=== PATIENT | male | born 1995 | race Caucasian/White ===

== ENCOUNTER 2019-04-29 12:01 | Emergency (ER) | payer OTHER ==
[~2019-04-29] VITALS: Ht 180.3 cm; Wt 83.2 kg
[2019-04-29] MEDS ORDERED: MAPA500C PO (12:07)
[2019-04-29] MEDS ORDERED: ACETAMINOPHEN 325 MG TAB PO ONE (13:15)
[2019-04-29] MEDS ORDERED: KETOROLAC 60 MG/2 ML VIAL (J1885) IM ONE (13:15)
[2019-04-29] MEDS ORDERED: PRED10TA2 PO (13:19)
[2019-04-29] MEDS ORDERED: PENI500T PO (13:19)
[2019-04-29 13:38] VITALS: BP 124/75
[2019-04-30] MEDS ORDERED: IBUP-1022 PO (12:33)
[2019-04-30] MEDS ORDERED: KEFL500C17 PO (12:33)
[2019-04-30] MEDS ORDERED: ONDA4TAB6 PO (12:38)
== END 2019-04-29 13:40 | disposition home or self-care (01) ==
LOC: M ED 12:01
DX: J02.0 Streptococcal pharyngitis (principal); F17.200 Nicotine dependence, unspecified, uncomplicated
CPT/HCPCS: 87880; 96372; 99284; J1885

== ENCOUNTER 2019-04-30 09:13 | Emergency (ER) | payer OTHER ==
[~2019-04-30] VITALS: Ht 180.3 cm; Wt 81.3 kg
[~2019-04-30 09:13] MED LIST: MAPA500C PO; PENI500T PO; PRED10TA2 PO
[2019-04-30] MEDS ORDERED: ONDANSETRON 4MG/2ML VIAL (J2405) IV ONE ×2 (10:00→10:30)
[2019-04-30 10:21] LABS: BASO % 0.1 % (0.0-1.0); HEMATOCRIT 42.8 % (42.0-52.0); HEMOGLOBIN 14.7 g/dl (13.5-17.5); LYMPH # 1.1 10^3/uL (1.5-5.0); LYMPH % 5.4 % (24.0-44.0); MEAN CORPUSCULAR HEMOGLOBIN 30.1 pg (27.0-33.0); MEAN CORPUSCULAR HGB CONC 34.3 g/dl (32.0-36.5); MEAN CORPUSCULAR VOLUME 87.5 fl (80.0-96.0); MONO # 1.3 10^3/uL (0.0-0.8); MONO % 6.1 % (0.0-5.0); NEUTROPHILS # 18.4 10^3/uL (1.5-8.5); NEUTROPHILS % 87.7 % (36.0-66.0); PLATELET COUNT, AUTOMATED 222 10^3/uL (150-450); RED BLOOD COUNT 4.89 10^6/uL (4.30-6.10)
[2019-04-30] MEDS ORDERED: dexameTHASONE 20 MG/5 ML VIAL (J1100) IV ONE (10:30)
[2019-04-30] MEDS ORDERED: ceFAZolin SOD 1 GM in D5W MINI-BAG PLUS 50 ML IV ONE (10:30)
[2019-04-30 10:48] LABS: BLOOD UREA NITROGEN 20 MG/DL (7-18); CALCIUM LEVEL 9.6 MG/DL (8.5-10.1); CARBON DIOXIDE LEVEL 26 MEQ/L (21-32); CHLORIDE LEVEL 100 MEQ/L (98-107); CREATININE FOR GFR 1.01 MG/DL (0.70-1.30); GLOMERULAR FILTRATION RATE > 60.0 (>60); GLUCOSE, FASTING 89 MG/DL (70-100); POTASSIUM SERUM 4.2 MEQ/L (3.5-5.1); SODIUM LEVEL 138 MEQ/L (136-145)
[2019-04-30] MEDS ORDERED: KETOROLAC 30 MG/ML VIAL (J1885) IV ONE (11:00)
[2019-04-30] MEDS ORDERED: KEFL500C17 PO (12:33)
[2019-04-30] MEDS ORDERED: IBUP-1022 PO (12:33)
[2019-04-30] MEDS ORDERED: ONDA4TAB6 PO (12:38)
[2019-04-30 12:45] VITALS: BP 138/77
== END 2019-04-30 12:53 | disposition home or self-care (01) ==
LOC: M ED 09:13
DX: J03.00 Acute streptococcal tonsillitis, unspecified (principal); R11.10 Vomiting, unspecified; F17.200 Nicotine dependence, unspecified, uncomplicated; Z79.52 Long term (current) use of systemic steroids; Z79.2 Long term (current) use of antibiotics
CPT/HCPCS: 80048; 85025; 96365; 96375; 99284; J0690; J1100; J1885; J2405

== ENCOUNTER 2020-10-04 11:49 | Emergency (ER) | payer OTHER ==
[~2020-10-04] VITALS: Ht 180.3 cm; Wt 98.0 kg
[~2020-10-04 11:49] MED LIST changes: +IBUP-1022 PO; +KEFL500C17 PO; +ONDA4TAB6 PO
[2020-10-04 12:32] LABS: BASO % 0.4 % (0.0-1.0); EOS # 0.1 10^3/uL (0.0-0.5); EOS % 0.7 % (0.0-3.0); LYMPH # 2.2 10^3/uL (1.5-5.0); LYMPH % 26.7 % (24.0-44.0); MEAN CORPUSCULAR HEMOGLOBIN 30.1 pg (27.0-33.0); MEAN CORPUSCULAR HGB CONC 34.1 g/dl (32.0-36.5); MEAN CORPUSCULAR VOLUME 88.2 fl (80.0-96.0); MONO # 0.7 10^3/uL (0.0-0.8); MONO % 8.2 % (2.0-8.0); NEUTROPHILS # 5.1 10^3/uL (1.5-8.5); NEUTROPHILS % 63.8 % (36.0-66.0); PLATELET COUNT, AUTOMATED 225 10^3/uL (150-450); RED BLOOD COUNT 4.65 10^6/uL (4.30-6.10); WHITE BLOOD COUNT 8.1 10^3/uL (4.0-10.0)
[2020-10-04 13:01] LABS: ALBUMIN 3.8 GM/DL (3.2-5.2); ALT/SGPT 19 U/L (12-78); BILIRUBIN,TOTAL 0.8 MG/DL (0.2-1.0); BLOOD UREA NITROGEN 15 MG/DL (7-18); CALCIUM LEVEL 8.9 MG/DL (8.5-10.1); CARBON DIOXIDE LEVEL 27 MEQ/L (21-32); CHLORIDE LEVEL 107 MEQ/L (98-107); CREATININE FOR GFR 1.21 MG/DL (0.70-1.30); GLOMERULAR FILTRATION RATE > 60.0 (>60); GLUCOSE, FASTING 86 MG/DL (70-100); LIPASE 55 U/L (73-393); POTASSIUM SERUM 3.9 MEQ/L (3.5-5.1); SODIUM LEVEL 140 MEQ/L (136-145); TOTAL PROTEIN 7.5 GM/DL (6.4-8.2)
[2020-10-04] MEDS ORDERED: NS 1,000 ML IV ONE (14:25)
[2020-10-04] MEDS ORDERED: ISOVUE-370 76% 100ML VIAL As Ordered ONE (14:31)
[2020-10-04] MEDS ORDERED: ONDANSETRON 4MG/2ML VIAL IV ONE (14:35)
--- NOTE | 2020-10-04 15:09 | REP ---
INDICATION: LLQ pain COMPARISON: None. TECHNIQUE: CT Scan of the abdomen and pelvis was performed with intravenous administration of 100 cc of Isovue 370, without oral contrast. Sagittal and coronal reconstruction images are performed. FINDINGS: Lung bases: Unremarkable. Liver: There is mild hepatomegaly. The length of the liver is approximately 19 cm. Gallbladder: Unremarkable. Spleen: Normal. Adrenals: Normal. Pancreas: Normal. Kidneys: There are areas of ill-defined hypodensity scattered throughout the cortex of both kidneys, suggesting bilateral pyelonephritis. There is no hydronephrosis or focal mass. Small and large bowel: Unremarkable. Free fluid: There is mild free fluid in the pelvis. Abdominal aorta: No aneurysm or dissection. Adenopathy: None. Appendix: Not inflamed. Osseous structures: Unremarkable. Pelvis: No mass. IMPRESSION: Findings in the kidneys which suggest bilateral pyelonephritis. Mild free fluid in the pelvis. Mild hepatomegaly. <Electronically signed by Jr Byrd > 10/04/20 2391
[2020-10-04] MEDS ORDERED: ZOFR4TAB16 PO (16:31)
[2020-10-04] MEDS ORDERED: CEFP200T PO (16:31)
[2020-10-04] MEDS ORDERED: ACETAMINOPHEN 325 MG TAB PO ONE (17:15)
[2020-10-04] MEDS ORDERED: ACET325C5 PO (18:20)
[2020-10-04 18:33] VITALS: BP 142/99
== END 2020-10-04 18:46 | disposition home or self-care (01) ==
LOC: M ED 11:49
DX: N10 Acute pyelonephritis (principal); R16.0 Hepatomegaly, not elsewhere classified; F17.200 Nicotine dependence, unspecified, uncomplicated
CPT/HCPCS: 74177; 80053; 81001; 83690; 85025; 96361; 96374; 99284; J2405; Q9967

== ENCOUNTER 2021-09-24 14:30 | Emergency (ER) | payer OTHER, SELFPAY ==
[~2021-09-24] VITALS: Ht 180.3 cm; Wt 101.9 kg
[~2021-09-24 14:30] MED LIST changes: +ACET325C5 PO; +CEFP200T PO; +ZOFR4TAB16 PO
[2021-09-24 14:31] VITALS: BP 125/79
[2021-09-24] MEDS ORDERED: DAY QUIL PO (14:58)
== END 2021-09-24 17:14 | disposition left against medical advice (07) ==
LOC: M ED 14:30
DX: Z53.21 Procedure and treatment not carried out due to patient leaving prior to being seen by health care provider (principal)

== ENCOUNTER 2024-10-16 15:36 | Observation (INO) | payer OTHER, SELFPAY ==
[2024-10-16] VITALS (15 sets, daily range): BP systolic 108–133; BP diastolic 58–74; TEMP 98.1–99.2; O2SAT 97–100
[~2024-10-16] VITALS: Ht 180.3 cm; Wt 104.3 kg
[~2024-10-16 15:36] MED LIST changes: +DAY QUIL PO; +ONDA-282 PO; -ONDA4TAB6 PO
[2024-10-16 18:37] LABS: MEAN CORPUSCULAR HEMOGLOBIN 25.4 pg (27.0-33.0); MEAN CORPUSCULAR HGB CONC 31.6 g/dl (32.0-36.5); MEAN CORPUSCULAR VOLUME 80.5 fl (80.0-96.0); PLATELET COUNT, AUTOMATED 406 10^3/uL (150-450); RED BLOOD COUNT 2.36 10^6/uL (4.30-6.10); WHITE BLOOD COUNT 9.6 10^3/uL (4.0-10.0)
[2024-10-16 18:58] LABS: ATYPICAL LYMPH 1 % (0-5); EOSINOPHILS 2 % (0-3); LYMPHOCYTES 60 % (16-44); MONOCYTES 2 % (0-5); NEUTROPHILS 35 % (28-66)
[2024-10-16 19:00] LABS: ANISOCYTOSIS 1+; MICROCYTOSIS 1+; PLATELET ESTIMATE NORMAL (NORMAL)
[2024-10-16 19:07] LABS: BLOOD UREA NITROGEN 16 MG/DL (9-23); CARBON DIOXIDE LEVEL 26 MMOL/L (20-31); CHLORIDE LEVEL 107 MMOL/L (98-107); CREATININE FOR GFR 0.97 MG/DL (0.70-1.30); GLOMERULAR FILTRATION RATE > 90.0 (>60); GLUCOSE, FASTING 91 MG/DL (60-100); POTASSIUM SERUM 3.6 MMOL/L (3.5-5.1); SODIUM LEVEL 142 MMOL/L (136-145)
[2024-10-16] MEDS ORDERED: HOME MED LIST COMPLETE! XX SCH (20:20)
[2024-10-16] MEDS ORDERED: LORazepam 2 MG TAB PO PRN (21:00)
[2024-10-16] MEDS: PANTOPRAZOLE 40MG VIAL IV SCH (22:51)
[2024-10-16] MEDS: THIAMINE 100 MG TAB PO SCH (22:51)
[2024-10-17] VITALS (8 sets, daily range): BP systolic 123–154; BP diastolic 63–95; TEMP 98.1–99.1; O2SAT 99–100
[2024-10-17 01:42] LABS: HEMOGLOBIN 7.2 g/dl (13.5-17.5)
[2024-10-17 07:47] LABS: HEMATOCRIT 22.7 % (42.0-52.0); HEMOGLOBIN 7.5 g/dl (13.5-17.5); MEAN CORPUSCULAR HEMOGLOBIN 26.7 pg (27.0-33.0); MEAN CORPUSCULAR VOLUME 80.8 fl (80.0-96.0); PLATELET COUNT, AUTOMATED 310 10^3/uL (150-450); RED BLOOD COUNT 2.81 10^6/uL (4.30-6.10); WHITE BLOOD COUNT 6.6 10^3/uL (4.0-10.0)
[2024-10-17 08:21] LABS: ALKALINE PHOSPHATASE 74 U/L (40-129); ALT/SGPT 26 U/L (7.0-40); AST/SGOT 22 U/L (<34); BILIRUBIN,TOTAL 0.5 MG/DL (0.3-1.2); BLOOD UREA NITROGEN 16 MG/DL (9-23); CALCIUM LEVEL 8.3 MG/DL (8.5-10.1); CARBON DIOXIDE LEVEL 24 MMOL/L (20-31); CHLORIDE LEVEL 108 MMOL/L (98-107); CREATININE FOR GFR 1.01 MG/DL (0.70-1.30); GLOMERULAR FILTRATION RATE > 90.0 (>60); GLUCOSE, FASTING 93 MG/DL (60-100); POTASSIUM SERUM 4.2 MMOL/L (3.5-5.1); SODIUM LEVEL 141 MMOL/L (136-145); TOTAL PROTEIN 6.1 G/DL (5.7-8.2)
[2024-10-17] MEDS: MULTIVITAMINS/MINERALS THERAP 1 TAB PO SCH (08:58)
[2024-10-17] MEDS: FOLIC ACID 1MG TAB PO SCH (08:59)
[2024-10-17] MEDS: MIRALAX *UNIT DOSE* 17GM PACKET PO SCH (09:00)
[2024-10-17 13:04] LABS: HEMATOCRIT 23.2 % (42.0-52.0); HEMOGLOBIN 7.6 g/dl (13.5-17.5)
[2024-10-17] MEDS ORDERED: ISOVUE-370 76% 100ML VIAL As Ordered ONE (16:52)
[2024-10-17] MEDS: MAGNESIUM CITRATE 300ML BTL PO ONE (18:01)
[2024-10-17 19:39] LABS: HEMATOCRIT 23.1 % (42.0-52.0); HEMOGLOBIN 7.6 g/dl (13.5-17.5)
[2024-10-18] VITALS (10 sets, daily range): BP systolic 107–138; BP diastolic 73–83; TEMP 98.1–98.8; O2SAT 99–100
[2024-10-18 00:52] LABS: HEMATOCRIT 23.2 % (42.0-52.0); HEMOGLOBIN 7.6 g/dl (13.5-17.5)
[2024-10-18 18:50] LABS: HEMATOCRIT 23.6 % (42.0-52.0); HEMOGLOBIN 7.8 g/dl (13.5-17.5); MEAN CORPUSCULAR HEMOGLOBIN 26.7 pg (27.0-33.0); MEAN CORPUSCULAR HGB CONC 33.1 g/dl (32.0-36.5); MEAN CORPUSCULAR VOLUME 80.8 fl (80.0-96.0); PLATELET COUNT, AUTOMATED 344 10^3/uL (150-450); RED BLOOD COUNT 2.92 10^6/uL (4.30-6.10); WHITE BLOOD COUNT 6.3 10^3/uL (4.0-10.0)
[2024-10-19] VITALS: BP 117/78; TEMP 98; O2SAT 95
[2024-10-19 04:00] VITALS: BP 113/66; TEMP 98; O2SAT 94
[2024-10-19 08:00] VITALS: BP 117/77; TEMP 98.8; O2SAT 97
[2024-10-19] MEDS: METAMUCIL (PSYLLIUM) PACKET PO SCH (08:31)
[2024-10-19] MEDS ORDERED: THIA100TA PO (10:16)
[2024-10-19] MEDS ORDERED: THERTAB19 PO (10:16)
[2024-10-19] MEDS ORDERED: META1POW PO (10:16)
[2024-10-19] MEDS ORDERED: FOLI1TAB11 PO (10:16)
[2024-10-19] MEDS ORDERED: MM S100C PO (10:23)
[2024-10-19] MEDS ORDERED: FOLITAB10 PO (10:35)
== END 2024-10-19 11:11 | disposition home or self-care (01) ==
LOC: M ED 15:36 → INTOOBSV 20:50 → M ED INP 20:50 → M MSPAV 10-17 02:49
PROVIDERS: ADMIT Family Medicine; ATTEND Student in an Organized Health Care Education/Training Program
DX: K64.2 Third degree hemorrhoids (principal); K62.5 Hemorrhage of anus and rectum; D64.9 Anemia, unspecified; F10.90 Alcohol use, unspecified, uncomplicated; R42 Dizziness and giddiness; R00.0 Tachycardia, unspecified; F17.210 Nicotine dependence, cigarettes, uncomplicated
CPT/HCPCS: 36415; 36430; 45398; 71045; 74174; 80048; 80053; 83735; 84484; 85014; 85018; 85025; 85027; 86850; 86900; 86901; 86920; 93005; 96374; 96376; 99285; J2470; P9016; Q9967